=== PATIENT | male | born 1985 | race Two or more races ===

== ENCOUNTER 2022-10-16 22:55 | Emergency (ER) | payer BC, OTHER ==
[~2022-10-16] VITALS: Ht 170.2 cm; Wt 86.3 kg
[2022-10-16 23:15] LABS: Basophils # (auto) 0.1 10 ^3/uL (0-0.2); Basophils % (auto) 0.6 % (0.0-2.0); Eosinophils # (auto) 0.2 10 ^3/uL (0-0.8); Eosinophils % (auto) 2.5 % (0.0-7.0); Hematocrit 41.5 % (41.0-53.0); Hemoglobin 14.1 g/dL (13.5-17.5); Lymphocytes # (auto) 1.7 10 ^3/uL (0.4-5.4); Lymphocytes % (auto) 21.1 % (10.0-50.0); Mean Corpuscular Hemoglobin 29.4 pg (28.0-32.0); Mean Corpuscular Volume 86.5 fL (80.0-100.0); Monocytes # (auto) 0.7 10 ^3/uL (0-1.3); Monocytes % (auto) 9.1 % (0.0-12.0); Neutrophils # (auto) 5.5 10 ^3/uL (1.6-8.6); Neutrophils % (auto) 66.7 % (37.0-80.0); Nucleated Red Blood Cells % 0.1 %; Red Cell Distribution Width 12.7 % (11.8-14.3); White Blood Cell 8.2 10^3/uL (4.4-10.8)
[2022-10-16 23:31] LABS: Potassium 3.9 mmol/L (3.5-5.1)
[2022-10-16 23:32] LABS: INR 0.99 (0.9-1.15); Partial Thromboplastin Time 29.1 sec (24.6-33.4)
[2022-10-16 23:34] LABS: Bilirubin, Total 0.4 mg/dL (0.2-1.0)
[2022-10-17 05:50] VITALS: BP 122/82
== END 2022-10-17 05:54 | disposition home or self-care (01) ==
LOC: ER 22:55
DX: R07.89 Other chest pain (principal); K21.9 Gastro-esophageal reflux disease without esophagitis
CPT/HCPCS: 36415; 71045; 80053; 83880; 84484; 85025; 85610; 85730; 93005